=== PATIENT | female | born 1985 | race Caucasian/White ===

== ENCOUNTER 2016-05-09 13:39 | Emergency (ER) | payer MEDICAID ==
[2014-05-16 06:16] VITALS: BMI 35.9
[~2016-05-09 13:39] MED LIST: IBUPROFEN600 MG PO; NORCO 5/325 TAB1 TA1 PO; PERCOCET 5-3251 TAB PO; PRENAVITE1 TAB PO
== END 2016-05-09 15:12 | disposition home or self-care (01) ==
LOC: D.ER 13:39
DX: S16.1XXA Strain of muscle, fascia and tendon at neck level, initial encounter (principal); V49.9XXA Car occupant (driver) (passenger) injured in unspecified traffic accident, initial encounter; Y93.89 Activity, other specified; Y92.410 Unspecified street and highway as the place of occurrence of the external cause; F17.200 Nicotine dependence, unspecified, uncomplicated